=== PATIENT | male | born 1930 | race Caucasian/White ===

== ENCOUNTER 2018-03-27 11:56 | Inpatient (IN) | END 2018-04-01 16:36 | LOC: 2S 15:58 → SUATTDRO 15:58 → 3N 03-30 13:33 ==

== ENCOUNTER 2018-10-09 10:59 | Observation (INO) ==
[~2018-10-09 10:59] MED LIST: CEFAZOLIN 1000MG 1,000 MG/7.5 ML SYR IV SCH; LR 15ML/HR IV SCH
--- NOTE | 2018-10-09 12:35 | History & Physical Bridge Note ---
Date of Service October 09, 2018 History & Physical Bridge Note I have examined the patient, reviewed the History & Physical and in the interval since the performance of the History & Physical I have noted the following changes of clinical significance: no changes noted
--- NOTE | 2018-10-09 12:35 | Pre Anesthesia Assessment ---
Date of Service October 09, 2018 Pre Sedation Assessment Vital Signs Temp Pulse Resp BP Pulse Ox 10/09/18 12:05 36.5 C 53 L 18 181/84 H 97 Cardiovascular + bradycardic and + irregularly irregular Respiratory normal respiratory effort, lungs clear to auscultation Pre-Sedation Airway Assessment Smoking Status: Former smoker Hx Sleep Apnea: No Hx Difficult Intubation: No Short, Thick Neck: No Thyromental Distance: < 3.5 Finger Breadths Oral Cavity: + Dental Abnormalities Mallampati Class: III ASA: ASA3 NPO Status Date of Last Intake of Fluids: 10/08/18 Date of Last Intake of Solid Food: 10/08/18 Procedure Planning Contraindications for Sedation: none Current Medications Reviewed: Yes Notes The planned sedation has been discussed with the patient. Informed Consent was obtained. I have identified the patient, determined the appropriateness of sedation and have assessed the patient immediately prior to the procedure. All medicine(s) and interventions are by my order.
[2018-10-09] MEDS ORDERED: BUPIVACAINE 0.25% 30 ML VIAL ONE (13:06)
[2018-10-09] MEDS ORDERED: BACITRACIN INJ 50,000 UNIT VIAL ONE (13:06)
[2018-10-09] MEDS ORDERED: LIDOCAINE HCL 1% 20 ML VIAL ONE (13:06)
[2018-10-09] MEDS ORDERED: MIDAZOLAM HCL 5 MG/ML 1 ML VIAL ONE (13:12)
[2018-10-09] MEDS ORDERED: fentaNYL citrate 100 MCG/2 ML VIAL ONE (13:12)
--- NOTE | 2018-10-09 14:51 | Post Anesthesia Assessment ---
Date of Service October 09, 2018 Post Sedation Assessment Vital Signs Temp Pulse Resp BP Pulse Ox 10/09/18 12:05 36.5 C 53 L 18 181/84 H 97 Recovery Score Activity: Moves 4 extremities Respiration: Deep Breath/Cough Circulation: +/-20% PreAnes Value Consciousness: Fully Awake Oxygen Saturation: > 92% On Room Air Discharge Sedation Level of Care: Fast Track Phase II Post Sedation Plan On clinical assessment, the patient appears to have tolerated the sedation without complications. Patient is recovering as anticipated. Patient will continue to be monitored by nursing and may be discharged when sedation discharge criteria are met per below protocol. Upon Completions of procedure and additional 15 minutes continue every 5 minute vital signs and the P.A.R. score; then discharge to a Phase I or Fast Track to [facility] per the following guidelines: * Discharge Patient to appropriate Phase II area if PAR is 8 or greater or return to pre- procedure baseline. The post - procedure orders will be as directed. * If PAR score is less than 8 or not return to pre-procedure baseline then patient will follow Phase I monitoring till PAR is reached for Phase II. The Phase I may be done in procedure room or may call to secure a Phase I area. * If naloxone or flumazenil are used for reversal, hold in Phase I for continued monitoring from when last reversal dose was given for a minimum of 60 minutes or longer pending the nurse and/or physician discretion of patient condition before discharge to Phase II. Please call the Sedation Physician to re-evaluate and complete post-note for discharge to Phase II area. Do NOT discharge from procedure sedation or Phase 1 until post- sedation evaluation note is complete by procedure /sedation MD Sedation Discharge Instructions to be given to the patient at discharge to home.
[2018-10-09] MEDS ORDERED: ACETAMINOPHEN 325 MG TAB PO PRN (14:52)
[2018-10-09] MEDS ORDERED: OXYCODONE/ACETAMINOPHEN 5mg/325mg TAB PO PRN (14:52)
[2018-10-09] MEDS ORDERED: CEFAZOLIN 1000MG 1,000 MG/7.5 ML SYR IV ONE (14:52)
--- NOTE | 2018-10-09 14:52 | Operative Report ---
Post Operative Report Pre & Post Diagnosis SSS, permanent AF Operation Date: 10/09/18 13:00 <No data on this case meets the specified criteria> Procedure Operation Date: 10/09/18 13:00 Actual Procedures p Pacer with Ventricular Lead - Kim Ding DO Surgeon Kim Ding, Poultry Picker none Estimated Blood Loss 30 Findings Consistent with Post-Op Diagnosis Specimens none Description of Procedure see official report I attest to the content of the Intraoperative Record and any orders documented therein. Any exceptions are noted below.
--- NOTE | 2018-10-09 14:59 | Discharge Summary ---
Date of Service Oct 10, 2018 Admission HPI Per Admitting Provider pt admitted ppm due to SSS Admission Exam Per Admitting Provider aaox3, NAD NC/AT, EOMI Supple No JVD irregular iregular S1/S2, + murmur CTA b/l no w/r/r soft nt/nd no LE edema b/l skin intact no focal deficits Principal Diagnosis SSS s/p single chamber ppm Discharge Exam aaox3, NAD NC/AT, EOMI Supple No JVD irregular irregular S1/S2, +systolic murmur CTA b/l no w/r/r soft nt/nd no LE edema b/l skin intact no focal deficits left pectoral incision intact, no hematoma mild ecchymosis Discharge Data Allergies Allergy/AdvReac Type Severity Reaction Status Date / Time atorvastatin [From Lipitor] Allergy unknown Unverified 10/09/18 12:11 reaction doxazosin [From Cardura] Allergy unknown Unverified 10/09/18 12:11 reaction dutasteride [From Avodart] Allergy urinary Verified 10/09/18 12:11 retension metoprolol [From Lopressor] Allergy unknown Unverified 10/09/18 12:11 reaction Consultations 10/09/18 14:53 Consult Case Management - Discharge Planning Routine Procedures Performed C Operation Date: 10/09/18 13:00 Actual Procedures p Pacer with Ventricular Lead - Kim Ding DO Ordered Studies CXR: No PTX, lead in position ECG: PROBATION AGENT underlying AF PPM Interrogation:Normal function; stable lead testing 10/09/18 06:45 EP Lab Images for PACS ONCE Hospital Course (1) SSS (sick sinus syndrome): Total Time Total Time Spent Total Time Spent (In Minutes): 30 Total Time Includes: Examination of the Patient, Discharge Planning, Medication Reconciliation and Other Discharge Plan Discharge Items Patient Disposition: Home - Home Health Services Reason For Visit: SICK SINUS SYNDROME Discharge Diagnosis: SSS s/p single chamber ppm Condition: Good Discharge Goals: Improve function Activity: As commented below Activity Comment: do not lift the left elbow over the left shoulder for 1 month Lifting: No more than 10 pounds Lifting Comment: do not lift more than 10 pounds with the left arm for 2 weeks Bathing: Keep incision dry Bathing Comment: can shower wednesday 10/11 just let water run over the incision do not scrub it Non-emergency contact: Primary Care Provider Call non-emergency contact if: you have any medication questions Follow-up/Referrals: Miguel Espinoza MD [Primary Care Provider] - Diet: Regular Addtl Provider Instructions: device and wound check next week as scheduled if you notice any swelling or concerns at the incision site call my office immediately Prescriptions: Continued warfarin [Coumadin] 5 mg tablet 4 mg PO DAILY RF: 0 furosemide 40 mg Tablet 40 mg PO DAILY RF: 0 amlodipine 5 mg Tablet 5 mg PO DAILY RF: 0 tamsulosin 0.4 mg Capsule 0.4 mg PO DAILY RF: 0 pantoprazole 40 mg Tablet,Delayed Release (Dr/Ec) 40 mg PO BID RF: 0 finasteride 5 mg Tablet 5 mg PO DAILY RF: 0 rosuvastatin 20 mg Tablet 20 mg PO DAILY RF: 0 aspirin 81 mg Tablet,Delayed Release (Dr/Ec) 81 mg PO DAILY RF: 0 Stand-Alone Forms: [facility] Discharge Orders: Discharge Order (Routine); Ordered 10/10/18 Ordered By: Oskar Thomas Admission Data Admit Date/Time: 10/09/18 14:03 Attending Provider: Kim Ding Admit Provider: Kim Ding Primary Care Provider: Miguel Espinoza Service: Surgical Services Other DC Date/Time DO NOT enter until pt leaves facility: 10/10/18 12:25
--- NOTE | 2018-10-10 08:22 | XRay Report ---
XR chest 2V routine HISTORY: post implant COMPARISON: None. FINDINGS: There is a left-sided single lead pacemaker. The leads appear intact. A cardiac valve prost hesis is noted. The heart is top normal in size. No pleural effusions. No pneumothorax. The lungs are clear. IMPRESSION: Left-sided single lead pacemaker. No pneumothorax. Electronically signed by: Prabhakar Dickerson M.D. 10/10/2018 8:21 AM
--- NOTE | 2018-10-10 09:15 | Cardiology Progress Note ---
Date of Service October 10, 2018 Assessment & Plan (1) SSS (sick sinus syndrome): s/p pacer placement tolerated well device interrogated, functioning appropriately cxr confirmed positioning as well our office will call to arrange f/u in device clinic restrictions reviewed recommend home health aide, he is agreeable will d/c once ride is available. (2) S/P TAVR (transcatheter aortic valve replacement): stable (3) HTN (hypertension): stable resume outpatient medical regimen (4) Atrial fibrillation: stable rate controlled will resume coumadin today f/u with MTM Subjective Pt seen and examined, oob in chair, states that he feels well. Pocket site only tender to palpation, otherwise, feels well. Denies cp, sob, palpitations, lightheadedness or dizziness. Friend coming to pick him up. tele reviewed: paced rhythm Review of Systems Review of Systems: All systems reviewed & are unremarkable except as noted in HPI & below Physical Exam Physical Exam: General: Awake, alert and oriented x 3. No acute distress. HEENT: Normocephalic, atraumatic. Pupils equal, round and reactive to light and accommodation. Extraocular muscles are intact. Anicteric sclera. Moist mucous membranes. Neck: No JVD. No bruit. Cardiovascular: Regular. Positive S-4. Normal S-1 and S-2. No S-3. 3/6 mid to late systolic ejection murmur, greatest at the right sternal border, second intercostal space with radiation to the bilateral carotids. No rubs. Pulmonary: Clear to auscultation bilaterally. No rales, rhonchi, or wheezing. Abdomen: Bowel sounds x 4, soft. No rebound, guarding or tenderness. No organomegaly. Extremities: No clubbing, cyanosis or edema. +2 pedal pulses bilaterally. Skin: Warm and dry. Results & Data Vital Signs (Past 12 Hours) Vital Signs Temp Pulse Pulse Resp BP Pulse Ox 10/10/18 07:02 37.0 C 73 19 124/74 98 10/10/18 03:15 36.5 C 70 19 127/83 97 10/09/18 23:36 36.4 C L 67 17 145/80 H 96
--- NOTE | 2018-10-22 15:38 | Operative Report ---
DATE OF OPERATION: 10/09/2018 PREOPERATIVE DIAGNOSES: Sick sinus syndrome and permanent atrial fibrillation. POSTOPERATIVE DIAGNOSES: Sick sinus syndrome and permanent atrial fibrillation. PROCEDURE: Single chamber rate responsive permanent pacemaker under fluoroscopic guidance along with peripheral venogram. SURGEON: Kim Ding DO. COMPUTER TESTER: None. ANESTHESIA: Conscious sedation administered under my supervision by Alisia Green. Start time 13:33, end time 14:48, total of 2 mg of Versed, 50 mcg of fentanyl. IV FLUIDS: 45 mL. IV CONTRAST: 5 mL. URINE OUTPUT: Not applicable. SPECIMENS: None. FINDINGS: See below. DRAINS: None. INDICATIONS: This is an 87-year-old gentleman who has a past medical history for permanent atrial fibrillation on Coumadin, CHADS2-VASc score of 4, chronic systolic heart failure, [place] Heart Association class 2, AVR status post TAVR in 06/04/2018, carotid artery disease status post carotid artery endarterectomy in the past, remote history of an CT with CAD and a nonobstructive cardiac catheterization in 03/2018, hyperlipidemia, hypertension, BPH, gastroesophageal reflux disease. Due to the patient having symptomatic sick sinus syndrome and permanent atrial fibrillation was recommended single chamber permanent pacemaker. CONSENT: Consent was obtained prior to the patient going into the Electrophysiology lab. The patient was informed of the risks, benefits and alternatives to the procedure. Risks include but not limited to sudden cardiac , cardiac arrhythmias, cerebrovascular accident, myocardial infarction, injury to the blood vessels, chamber of the heart, lung, bleeding, and infection. The patient understood these risks and agreed to the procedure as planned. Informed consent was obtained. DESCRIPTION OF THE PROCEDURE: 10 mL of 1% lidocaine, bupivacaine mixture were given in the left deltopectoral groove. Incision was made in left deltopectoral groove. Blunt dissection was performed down to identify cephalic vein. Cephalic vein was identified and isolated using 0 silk ties. However, the vein was very small and I was unable to pass a wire, so I ended up time ____ and doing a peripheral venogram to identify the axillary vein. A peripheral venogram was performed. Axillary venous access was obtained through a needlestick without any problems. Guidewire was inserted without any resistance. The 8-Swazi sheath was inserted over the guidewire without any resistance. Guidewire and dilator removed and the right ventricular pacing lead was advanced into right ventricle and positioned in intraventricular apex under fluoroscopic guidance. There was adequate pacing and sensing thresholds and no diaphragmatic stimulation with high output pacing. The 8-Swazi sheath was peeled away and lead was fixated to pectoralis muscle using 0 silk suture. A pacemaker pocket was created using blunt dissection over the pectoralis muscle within the pectoralis fascia. The pocket was flushed with copious amounts of bacitracin, saline wash and inspected for hemostasis. The new pulse generator was attached to the leads, making sure that the pins were in position, passed set screw and set screws were all tightened. Pulse generator was then placed in an antibiotic TYRX pouch, followed then by being placed in the pocket, making sure that the leads were lying flat beneath the device and a stay stitch using 0 silk suture was used to secure the device to pectoralis muscle. Rickey stat was placed in the pocket as the patient is going back on Coumadin and then the incision was closed in a 3-layer fashion with 2-0 Vicryl interrupted suture followed by a 3-0 Vicryl interrupted suture followed by 4-0 Monocryl running stitch and Dermabond was applied followed then by a pressure dressing. EQUIPMENT: 1. Pulse generator is a Medtronic Angy XT SR MRI SureScan [id number], serial number [id number]. 2. Right ventricular lead, Medtronic 5076-58 cm, serial number [id number]. 3. TYRX pouch, reference number [id number], lot number [id number], expiration 11/09/2018. INTRAOPERATIVE TESTING: R waves 5.5 millivolts, impedance 785 ohms, threshold 0.5 volts at 0.5 milliamps. FINAL MEASUREMENTS THROUGH THE DEVICE: R waves 6.4 millivolts, impedance, 608 ohms, threshold 0.25 volts at 0.4 milliseconds. FINAL PARAMETERS: VVIR 60/120. Right ventricular amplitude 3.5 volts, pulse width 0.4 milliseconds, sensitivity 0.9 millivolts. IMPRESSION: Successful single chamber rate responsive permanent pacemaker implantation under fluoroscopic guidance along with peripheral venogram secondary to sick sinus syndrome and permanent atrial fibrillation. PLAN: Monitor patient overnight, 12-lead ECG, chest x-ray. He cannot lift the left elbow or left shoulder for 1 month. He cannot lift more than 10 pounds with the left arm for 2 weeks. He can shower in 2 days, let water run over the incision, do not scrub it and he will follow up in our [facility] office for device and wound check the following week. I attest to the content of the Intraoperative Record and any orders documented therein. Any exception s are noted below.
== END 2018-10-10 12:25 | disposition home health service (06) ==
LOC: ASU 10:59 → 2E 10:59